=== PATIENT | male | born 1985 | race Caucasian/White ===

== ENCOUNTER 2018-12-24 18:48 | Emergency (ER) | payer OTHER, MEDICAID ==
[~2018-12-24] VITALS: Ht 185.4 cm; Wt 79.4 kg
[2018-12-24] MEDS ORDERED: ALBUTEROL2.5 MG/31 INH ×2 (19:06→19:58)
[2018-12-24] MEDS ORDERED: ACCUNEB SO1.25 MG/1 INH (19:06)
[2018-12-24 19:47] LABS: INFLUENZA A ANTIGEN None Detected (None Detect); INFLUENZA B ANTIGEN None Detected (None Detect)
[2018-12-24] MEDS ORDERED: VENTOLIN HFA 1818 GM INH (19:58)
[2018-12-24] MEDS ORDERED: PROMETH-CODEIN 65 ML PO (19:58)
[2018-12-24] MEDS ORDERED: ZPAK PO (19:58)
[2018-12-24] MEDS ORDERED: MEDROLDOSEPACK PO (19:58)
[2018-12-24 20:04] VITALS: BP 132/74
== END 2018-12-24 20:04 | disposition home or self-care (01) ==
LOC: M.ERS 18:48
PROVIDERS: Nurse Practitioner Family
DX: J20.9 Acute bronchitis, unspecified (principal); F17.200 Nicotine dependence, unspecified, uncomplicated; J45.909 Unspecified asthma, uncomplicated

== ENCOUNTER 2021-07-08 09:33 | Emergency (ER) | payer OTHER, MEDICAID ==
[~2021-07-08] VITALS: Ht 185.4 cm; Wt 77.1 kg
[~2021-07-08 09:33] MED LIST: ACCUNEB SO1.25 MG/1 INH; ALBUTEROL2.5 MG/31 INH; MEDROLDOSEPACK PO; PROMETH-CODEIN 65 ML PO; VENTOLIN HFA 1818 GM INH; ZPAK PO
[2021-07-08 10:51] LABS: CALCIUM 8.6 mg/dL (8.5-10.1)
[2021-07-08 10:55] LABS: HEMATOCRIT 40.3 % (42.0-52.0); HEMOGLOBIN 13.7 gm/dL (14.0-18.0); MCH 30.9 pg (26.0-34.0); MCHC 34.1 g/dL (28.0-37.0); MCV 90.7 fL (80.0-100.0); MPV 9.4 fl. (7.2-11.1); RBC 4.44 mil/uL (4.50-6.00); RDW-CV 13.3 % (10.5-14.5); WBC 16.9 thou/uL (4.0-11.0)
[2021-07-08] MEDS ORDERED: AUGMENTIN 875-1 EACH PO (11:20)
[2021-07-08] MEDS ORDERED: VENTOLIN HFA 1818 GM INH (11:20)
[2021-07-08 11:44] VITALS: BP 141/88
--- NOTE | 2021-07-08 12:52 | EKG ---
[place] [address] ELECTROCARDIOGRAM REPORT Name: BELLA NOE Room: [facility]#: [id number] Admission: 07/08/21 Attend Phys: Discharge: 07/08/21 Date of : 81 Date of Service: 07/08/21 [facility] Report #: [id number] THIS REPORT FOR: //name// [facility] ED Test Date: 2021-07-08 Test Time: 10:37:55 Pat Name: BELLA NOE Department: Room: Gender: [employer]: : 1985 Requested By: John Jalloh Order Number: [id number] MD: Yves Guo Measurements Intervals [place] Rate: 75 P: 77 GA: 135 QRS: 71 QRSD: 90 T: 62 QT: 371 QTc: 415 Interpretive Statements Sinus rhythm ST elev, probable normal early repol pattern Baseline wander in lead(s) II,III,aVR,aVF,V1,V3,V6 No previous ECG available for comparison Electronically Signed On 07-08-2021 12:52:29 CDT by Yves Guo [email or web address] <ELECTRONICALLY SIGNED> By: Yves Guo MD, FACC 07/08/21 1252 1037 1037 Yves Guo MD, FAC /EPI
== END 2021-07-08 11:44 | disposition home or self-care (01) ==
LOC: M.ERS 09:33
PROVIDERS: Emergency Medicine Emergency Medical Services
DX: J18.9 Pneumonia, unspecified organism (principal); Z20.822 Contact with and (suspected) exposure to COVID-19; J45.909 Unspecified asthma, uncomplicated; F12.90 Cannabis use, unspecified, uncomplicated; Z79.51 Long term (current) use of inhaled steroids